=== PATIENT | female | born 1955 | race Caucasian/White ===

== ENCOUNTER → 2020-02-07 | Outpatient (CLI) | payer MEDICARE ==
[~2020-02-07] MED LIST: AMPI500C2 PO; BUPIVACAINE MPF 0.25% 10 ML VIAL. ONE; CELE200C PO; CIPR500T PO; DICL100G28 TP; DULO40CA2 PO; HYDR-2769 PO; IOHEXOL 300 MG/ML 50 ML VIAL. ONE; IRBE300T23 PO; LIDO30CR TP; LIDOCAINE 1% PF 30 ML VIAL. ONE; OXYB5TAB10 PO; PANT40TA6 PO; PREG100C PO; methylPREDNISolone ACETATE 40 MG/ML VIAL. ONE
[2020-02-07 12:05] LABS: AMPHETAMINE/METHAMPHETAMINE NEG (NEG); BARBITURATES NEG (NEG); BENZODIAZEPINES NEG (NEG); CANNABINOIDS NEG (NEG); COCAINE NEG (NEG); METHADONE NEG (NEG); OPIATES POS (NEG); PHENCYCLIDINE NEG (NEG)
[2020-02-07 12:06] VITALS: BP 135/78
== END | disposition home or self-care (01) ==
LOC: SURG 10:51
PROVIDERS: ATTEND Anesthesiology
DX: M54.5 Low back pain (principal); M47.812 Spondylosis without myelopathy or radiculopathy, cervical region; M47.896 Other spondylosis, lumbar region; M53.3 Sacrococcygeal disorders, not elsewhere classified; M46.1 Sacroiliitis, not elsewhere classified; M79.18 Myalgia, other site; Z79.899 Other long term (current) drug therapy; Z88.2 Allergy status to sulfonamides; Z88.1 Allergy status to other antibiotic agents; Z88.8 Allergy status to other drugs, medicaments and biological substances; M19.90 Unspecified osteoarthritis, unspecified site; Z85.3 Personal history of malignant neoplasm of breast; Z90.710 Acquired absence of both cervix and uterus; Z87.440 Personal history of urinary (tract) infections
CPT/HCPCS: 36415; 64451; 80307; J1030; J2001; J3490; Q9967; 64483; 77002

== ENCOUNTER 2020-02-08 11:42 | Emergency (ER) | payer MEDICARE ==
[~2020-02-08] VITALS: Ht 165.1 cm; Wt 72.2 kg
[~2020-02-08 11:42] MED LIST changes: -AMPI500C2 PO; -BUPIVACAINE MPF 0.25% 10 ML VIAL. ONE; -CIPR500T PO; -IOHEXOL 300 MG/ML 50 ML VIAL. ONE; -LIDOCAINE 1% PF 30 ML VIAL. ONE; -methylPREDNISolone ACETATE 40 MG/ML VIAL. ONE
[2020-02-08 11:56] VITALS: BP 132/83
--- NOTE | 2020-02-08 12:17 | PHYS DOC ---
Past History Past Medical History: Arthritis, Cancer Past Surgical History: Cancer Surgery, Hysterectomy, Other Additional Past Surgical Histo: Breast, Alcohol Use: Rarely Adult General Chief Complaint Chief Complaint: PELVIC PAIN HPI HPI Patient is a 64yo female with history of breast cancer and bladder issues who presents for suspect UTI. She has long history of UTIs and was established with a Urologist in [place] but recently moved to [place]. She reports long history of recurrent UTIs and feels she's had one for past 2 weeks citing worsened symptoms for past 72 hours without fever. Describes vague pelvic pain and increased urinary frequency which is typical for her. Review of Systems Review of Systems Fourteen body systems of review of systems have been reviewed. See HPI for pertinent positives and negative responses, other dowell all other systems are negative, non-pertinent or non-contributory Allergies Allergies Allergies Coded Allergies Type Severity Reaction Last Updated Verified Sulfa (Sulfonamide Antibiotics) Allergy Unknown 02/07/20 Yes tetracycline Allergy Unknown 02/07/20 Yes Physical Exam Physical Exam Constitutional: Well developed, well nourished, no acute distress, non-toxic appearance. HENT: Normocephalic, atraumatic, bilateral external ears normal, oropharynx moist, no oral exudates, nose normal. Eyes: PERRLA, EOMI, conjunctiva normal, no discharge. Neck: Normal range of motion, no tenderness, supple, no stridor. Cardiovascular: Heart rate regular, sinus rhythm, no murmurs rubs or gallops Lungs & Thorax: Bilateral breath sounds clear to auscultation Abdomen: Bowel sounds normal, soft, no tenderness, no masses, no pulsatile masses. Nonsurgical abdomen, no peritoneal signs Skin: Warm, dry, no erythema, no rash. Back: No tenderness, no CVA tenderness. Extremities: No tenderness, no cyanosis, no clubbing, ROM intact, no edema. Neurologic: Alert and oriented X 3, grossly normal motor & sensory function, no focal deficits noted. Psychologic: Affect normal, judgement normal, mood normal. Current Patient Data Vital Signs Vital Signs Date Time Temp Pulse Resp B/P (MAP) Pulse Ox O2 Delivery O2 Flow Rate FiO2 02/08/20 11:56 97.8 70 16 132/83 (99) 96 Room Air Lab Results Laboratory Tests Test 02/08/20 12:07 Urine Collection Type Unknown Urine Color Yellow Urine Clarity Clear Urine pH 5.5 Urine Specific [place] 1.025 Urine Protein Neg (NEG-TRACE) Urine Glucose (UA) Neg mg/dL (NEG) Urine Ketones (Stick) Neg mg/dL (NEG) Urine Blood Neg (NEG) Urine Nitrite Neg (NEG) Urine Bilirubin Neg (NEG) Urine Urobilinogen Dipstick 0.2 mg/dL (0.2 mg/dL) Urine Leukocyte Esterase Mod (NEG) Urine RBC Occ /HPF (0-2) Urine WBC 20-40 /HPF (0-4) Urine Squamous Epithelial Cells Mod /LPF Urine Bacteria Mod /HPF (0-FEW) EKG EKG [] Radiology/Procedures Radiology/Procedures [] Heart Score Risk Factors: Risk Factors: DM, Current or recent (<one month) smoker, HTN, HLP, family history of CAD, obesity. Risk Scores: Risk Factors: DM, Current or recent (<one month) smoker, HTN, HLP, family history of CAD, obesity. Course & Med Decision Making Course & Med Decision Making Pertinent Labs and Imaging studies reviewed. (See chart for details) Discussed most likely diagnosis of complicated UTI. Patient treated and RX Cipro given. She has outpatient Urology referral already pending, I feel this is appropriate given her history Strict return precautions given with good understanding by patients. All questions and concerns addressed prior to ED departure in stable condition Dragon Disclaimer Dragon Disclaimer This electronic medical record was generated, in whole or in part, using a voice recognition dictation system. Departure Departure: Impression: Primary Impression: Complicated UTI (urinary tract infection) Disposition: 01 [facility] HOME SELF CARE/HOMELESS Condition: STABLE Referrals: TAWNY SAMUEL DO (PCP) Patient Instructions: Urinary Tract Infection Additional Instructions: As instructed prior to ER departure, please call your primary care physician to schedule outpatient follow-up in upcoming 1 to 14 days after discharge I feel you will benefit from continued outpatient urology follow-up as previously scheduled, please ensure you follow-up with them even after resolution of acute infection As discussed, you were prescribed a medication ciprofloxacin for your infection. This is to treat your complicated UTI. As discussed, please stop your duloxetine medication temporarily while you are on this antibiotic If any concerning signs or symptoms present prior to outpatient follow-up please do not hesitate to come back for repeat evaluation It was pleasure to take care of you and I wish you a speedy recovery! Scripts Ciprofloxacin Hcl (CIPROFLOXACIN HCL) 500 Mg Tablet 1 TAB PO BID for UTI, #13 TAB Prov: MARY GAYLE DO 02/08/20 MARY GAYLE DO Feb 08, 2020 12:17
[2020-02-08 12:31] LABS: BACTERIA,URINE MOD /HPF (0-FEW); BILIRUBIN,URINE NEG (NEG); CLARITY,URINE CLEAR; COLOR,URINE YELLOW; GLUCOSE,URINE NEG (NEG); NITRITE,URINE NEG (NEG); RBC,URINE OCC /HPF (0-2); SQUAMOUS EPITHELIAL CELL,UR MOD /LPF; UROBILINOGEN,URINE 0.2 mg/dL (0.2 mg/dL); WBC,URINE 20-40 /HPF (0-4)
[2020-02-08] MEDS ORDERED: CIPR500T PO (13:03)
[2020-02-08] MEDS ORDERED: CIPROFLOXACIN HCL 500 MG TABLET PO ONE (13:15)
== END 2020-02-08 13:16 | disposition home or self-care (01) ==
LOC: ER 11:42
DX: N39.0 Urinary tract infection, site not specified (principal); R10.2 Pelvic and perineal pain; M19.90 Unspecified osteoarthritis, unspecified site; Z90.710 Acquired absence of both cervix and uterus; Z85.3 Personal history of malignant neoplasm of breast; Z88.2 Allergy status to sulfonamides; Z88.1 Allergy status to other antibiotic agents
CPT/HCPCS: 81001; 87086; 99283

== ENCOUNTER → 2020-03-04 | Outpatient (CLI) | payer MEDICARE ==
[2020-02-08 11:56] VITALS: BP 132/83
[~2020-03-04] MED LIST changes: +CIPR500T PO
--- NOTE | 2020-03-04 10:30 | RAD ---
INDICATION: Reason: CHRONIC CYSTITIS / Spl. Instructions: / History: COMPARISON: None. TECHNIQUE: Grayscale and color ultrasound images obtained of the bilateral kidneys and bladder. FINDINGS: Right Kidney: 97 mm. No hydronephrosis. Left Kidney: 109 mm. No hydronephrosis. Bladder: Minimal urine within Partially visualized liver is echogenic. Can be seen with fatty infiltration. IMPRESSION: * No hydronephrosis bilaterally. Electronically signed by: Luis Enrique Dubon MD (03/04/2020 10:27 AM) [id number]
== END ==
LOC: US 09:36
PROVIDERS: ATTEND Urology
DX: N30.20 Other chronic cystitis without hematuria (principal); N28.89 Other specified disorders of kidney and ureter
CPT/HCPCS: 76770

== ENCOUNTER → 2020-03-06 | Outpatient (CLI) | payer MEDICARE ==
[~2020-03-06] MED LIST changes: +AMPI500C2 PO; +BUPIVACAINE MPF 0.25% 30 ML VIAL. ONE
[2020-03-06 13:14] VITALS: BP 136/68
== END | disposition home or self-care (01) ==
LOC: SURG 12:16
PROVIDERS: ATTEND Anesthesiology
DX: M79.18 Myalgia, other site (principal); M53.3 Sacrococcygeal disorders, not elsewhere classified; M46.1 Sacroiliitis, not elsewhere classified; M47.812 Spondylosis without myelopathy or radiculopathy, cervical region; N30.20 Other chronic cystitis without hematuria; M19.90 Unspecified osteoarthritis, unspecified site; Z85.3 Personal history of malignant neoplasm of breast; Z87.440 Personal history of urinary (tract) infections; Z90.710 Acquired absence of both cervix and uterus; Z80.8 Family history of malignant neoplasm of other organs or systems; Z88.2 Allergy status to sulfonamides; Z79.899 Other long term (current) drug therapy; Z88.8 Allergy status to other drugs, medicaments and biological substances; Z88.1 Allergy status to other antibiotic agents; Z82.49 Family history of ischemic heart disease and other diseases of the circulatory system
CPT/HCPCS: 20553; J3490

== ENCOUNTER → 2020-03-12 | Outpatient (CLI) | payer MEDICARE ==
[2020-03-06 13:14] VITALS: BP 136/68
[~2020-03-12] MED LIST changes: -BUPIVACAINE MPF 0.25% 30 ML VIAL. ONE
--- NOTE | 2020-03-20 12:36 | RAD ---
DATE: 03/12/2020 11:21 AM EXAM: MAMMO [facility] SCREENING BILATERAL HISTORY: Screening COMPARISON: 03/16/2019, 03/03/2018 Bilateral CC and MLO views of the breasts were performed. Bilateral breast tomosynthesis was performed in CC and MLO projections. This study was interpreted with the benefit of Computerized Aided Detection (CAD). FINDINGS: Breast Density: SCATTERED The breast parenchyma shows scattered fibroglandular densities. Breast parenchyma level B Stable benign postsurgical change in the left breast. No suspicious masses, microcalcifications or architectural distortion is present to suggest malignancy in either breast. The visualized axillae are unremarkable. IMPRESSION: No mammographic evidence of malignancy. BI-RADS CATEGORY: 2 BENIGN FINDING(S) RECOMMENDED FOLLOW-UP: 12M 12 MONTH FOLLOW-UP Annual screening mammography is recommended, unless clinically indicated sooner based on symptoms or change in physical exam. PQRS compliance statement: Patient information was entered into a reminder system with a target due date for the next mammogram. Mammography is a sensitive method for finding small breast cancers, but it does not detect them all and is not a substitute for careful clinical examination. A negative mammogram does not negate a clinically suspicious finding and should not result in delay in biopsying a clinically suspicious abnormality. "Our facility is accredited by the [employer] Mammography Program."
== END ==
LOC: MAMMO 11:04
PROVIDERS: ATTEND Family Medicine
DX: Z12.31 Encounter for screening mammogram for malignant neoplasm of breast (principal); N64.89 Other specified disorders of breast
CPT/HCPCS: 77063; 77067

== ENCOUNTER → 2020-04-03 | Outpatient (CLI) | payer MEDICARE ==
[~2020-04-03] MED LIST changes: +BUPIVACAINE MPF 0.25% 10 ML VIAL. ONE; +IOHEXOL 300 MG/ML 50 ML VIAL. ONE; +LIDOCAINE 1% PF 30 ML VIAL. ONE; +methylPREDNISolone ACETATE 40 MG/ML VIAL. ONE
[2020-04-03 13:11] VITALS: BP 149/95
== END | disposition home or self-care (01) ==
LOC: SURG 12:24
PROVIDERS: ATTEND Anesthesiology
DX: M46.1 Sacroiliitis, not elsewhere classified (principal); M54.5 Low back pain; G89.29 Other chronic pain; M19.90 Unspecified osteoarthritis, unspecified site; Z88.2 Allergy status to sulfonamides; Z88.8 Allergy status to other drugs, medicaments and biological substances; Z79.899 Other long term (current) drug therapy; Z88.1 Allergy status to other antibiotic agents; Z80.8 Family history of malignant neoplasm of other organs or systems; Z87.440 Personal history of urinary (tract) infections; Z85.3 Personal history of malignant neoplasm of breast; Z90.710 Acquired absence of both cervix and uterus; Z82.49 Family history of ischemic heart disease and other diseases of the circulatory system
CPT/HCPCS: 27096; J1030; J3490; Q9967

== ENCOUNTER → 2020-05-01 | Outpatient (CLI) | payer MEDICARE ==
[~2020-05-01] MED LIST changes: -CIPR500T PO; +CIPR500T2 PO; +NITR100C62 PO
[2020-05-01 16:05] VITALS: BP 167/76
== END | disposition home or self-care (01) ==
LOC: SURG 14:02
PROVIDERS: ATTEND Anesthesiology
DX: M46.1 Sacroiliitis, not elsewhere classified (principal); M47.816 Spondylosis without myelopathy or radiculopathy, lumbar region; M54.5 Low back pain; I10 Essential (primary) hypertension; Z88.1 Allergy status to other antibiotic agents; Z88.8 Allergy status to other drugs, medicaments and biological substances; Z82.49 Family history of ischemic heart disease and other diseases of the circulatory system; Z98.890 Other specified postprocedural states
CPT/HCPCS: G0260; J1030; J3490; Q9967; 27096

== ENCOUNTER → 2020-05-29 | Day surgery (SDC) | payer MEDICARE ==
[~2020-05-29] MED LIST changes: +BUPIVACAINE MPF 0.25% 10 ML VIAL. IJ ONE; +DEXAMETHASONE SOD PHOS 4 MG/ML VIAL. INT ART ONE; +DEXAMETHASONE SOD PHOS 4 MG/ML VIAL. ONE; -IOHEXOL 300 MG/ML 50 ML VIAL. ONE; +LIDOCAINE 1% PF 30 ML VIAL. INJ ONE; +MIDAZOLAM HCL PF 2 MG/2 ML VIAL. IVP ONE; +MIDAZOLAM HCL PF 2 MG/2 ML VIAL. ONE; -methylPREDNISolone ACETATE 40 MG/ML VIAL. ONE
[2020-05-29 10:22] VITALS: BP 119/72
== END | disposition home or self-care (01) ==
LOC: SURG 08:11
PROVIDERS: ATTEND Anesthesiology
DX: M46.1 Sacroiliitis, not elsewhere classified (principal); M47.816 Spondylosis without myelopathy or radiculopathy, lumbar region; F11.90 Opioid use, unspecified, uncomplicated
CPT/HCPCS: 64635; 64640; 99152; 99153; J1100; J2250; J3010; J3490

== ENCOUNTER → 2020-07-03 | Day surgery (SDC) | payer MEDICARE ==
[~2020-07-03] MED LIST changes: +0.9 % SODIUM CHLORIDE 50 ML VIAL. IJ ONE; -BUPIVACAINE MPF 0.25% 10 ML VIAL. IJ ONE; -BUPIVACAINE MPF 0.25% 10 ML VIAL. ONE; +BUPIVACAINE MPF 0.25% 30 ML VIAL. ONE; +DEXAMETHASONE SOD PHOS 10 MG/ML VIAL. ONE; -DEXAMETHASONE SOD PHOS 4 MG/ML VIAL. INT ART ONE; -DEXAMETHASONE SOD PHOS 4 MG/ML VIAL. ONE; +IOHEXOL 300 MG/ML 50 ML VIAL. ONE; -LIDO30CR TP; +LIDO30CR2 TP; -LIDOCAINE 1% PF 30 ML VIAL. INJ ONE; -MIDAZOLAM HCL PF 2 MG/2 ML VIAL. IVP ONE; -MIDAZOLAM HCL PF 2 MG/2 ML VIAL. ONE
[2020-07-03 09:17] VITALS: BP 165/72
== END | disposition home or self-care (01) ==
LOC: SURG 08:16
PROVIDERS: ATTEND Anesthesiology
DX: M54.16 Radiculopathy, lumbar region (principal); M51.36 Other intervertebral disc degeneration, lumbar region; M47.812 Spondylosis without myelopathy or radiculopathy, cervical region; M53.3 Sacrococcygeal disorders, not elsewhere classified; M46.1 Sacroiliitis, not elsewhere classified; M79.18 Myalgia, other site; I10 Essential (primary) hypertension; M19.90 Unspecified osteoarthritis, unspecified site; Z88.2 Allergy status to sulfonamides; Z88.8 Allergy status to other drugs, medicaments and biological substances; Z79.899 Other long term (current) drug therapy; Z88.1 Allergy status to other antibiotic agents; Z90.710 Acquired absence of both cervix and uterus; Z98.890 Other specified postprocedural states; Z85.3 Personal history of malignant neoplasm of breast; Z87.440 Personal history of urinary (tract) infections; Z80.8 Family history of malignant neoplasm of other organs or systems; Z82.49 Family history of ischemic heart disease and other diseases of the circulatory system
CPT/HCPCS: 62323; J1100; J3490; Q9967; 72275

== ENCOUNTER → 2020-07-31 | Day surgery (SDC) | payer MEDICARE ==
[~2020-07-31] MED LIST changes: -0.9 % SODIUM CHLORIDE 50 ML VIAL. IJ ONE; -BUPIVACAINE MPF 0.25% 30 ML VIAL. ONE; -DEXAMETHASONE SOD PHOS 10 MG/ML VIAL. ONE; -IOHEXOL 300 MG/ML 50 ML VIAL. ONE; -LIDOCAINE 1% PF 30 ML VIAL. ONE
[2020-07-31 10:21] VITALS: BP 130/74
== END | disposition home or self-care (01) ==
LOC: SURG 09:28
PROVIDERS: ATTEND Anesthesiology
DX: M54.16 Radiculopathy, lumbar region (principal); M48.061 Spinal stenosis, lumbar region without neurogenic claudication; M51.36 Other intervertebral disc degeneration, lumbar region; I10 Essential (primary) hypertension; M19.90 Unspecified osteoarthritis, unspecified site; Z88.2 Allergy status to sulfonamides; Z88.8 Allergy status to other drugs, medicaments and biological substances; Z79.899 Other long term (current) drug therapy; Z90.710 Acquired absence of both cervix and uterus; Z85.3 Personal history of malignant neoplasm of breast; Z87.440 Personal history of urinary (tract) infections; Z88.1 Allergy status to other antibiotic agents; Z80.8 Family history of malignant neoplasm of other organs or systems; Z82.49 Family history of ischemic heart disease and other diseases of the circulatory system
CPT/HCPCS: 64483

== ENCOUNTER → 2020-09-11 | Day surgery (SDC) | payer MEDICARE ==
[~2020-09-11] MED LIST changes: +0.9 % SODIUM CHLORIDE 10 ML VIAL. ONE; +BUPIVACAINE MPF 0.25% 10 ML VIAL. ONE; +DEXAMETHASONE SOD PHOS 10 MG/ML VIAL. ONE; +IOHEXOL 300 MG/ML 50 ML VIAL. ONE; +LIDOCAINE 1% PF 30 ML VIAL. ONE
[2020-09-11 10:30] VITALS: BP 132/63
== END | disposition home or self-care (01) ==
LOC: SURG 10:20
PROVIDERS: ATTEND Anesthesiology
DX: M54.16 Radiculopathy, lumbar region (principal); M43.06 Spondylolysis, lumbar region; M51.36 Other intervertebral disc degeneration, lumbar region; I10 Essential (primary) hypertension; M19.90 Unspecified osteoarthritis, unspecified site; Z88.2 Allergy status to sulfonamides; Z79.899 Other long term (current) drug therapy; Z88.8 Allergy status to other drugs, medicaments and biological substances; Z87.440 Personal history of urinary (tract) infections; Z85.3 Personal history of malignant neoplasm of breast; Z90.710 Acquired absence of both cervix and uterus; Z98.890 Other specified postprocedural states
CPT/HCPCS: 64483; J1100; J3490; Q9967

== ENCOUNTER → 2020-09-11 | Outpatient (CLI) | payer MEDICARE ==
[~2020-09-11] MED LIST changes: -0.9 % SODIUM CHLORIDE 10 ML VIAL. ONE; -BUPIVACAINE MPF 0.25% 10 ML VIAL. ONE; -DEXAMETHASONE SOD PHOS 10 MG/ML VIAL. ONE; -IOHEXOL 300 MG/ML 50 ML VIAL. ONE; -LIDOCAINE 1% PF 30 ML VIAL. ONE
[2020-09-11 10:30] VITALS: BP 132/63
--- NOTE | 2020-09-11 17:16 | RAD ---
XR L-SPINE BENDING ONLY 2-3 VIEWS History: Reason: BACK PAIN, FLEXION AND EXTENSION / Spl. Instructions: / History: Technique: 3 views lumbar spine. Comparison: None. Findings: Normal vertebral body alignment, unchanged in flexion and extension. Normal vertebral body height. No fracture. Multilevel degenerative disc changes most prominent moderate L3-L4 and L5-S1. Moderate to advanced lower lumbar facet arthropathy. Vascular calcifications. Impression: 1. Moderate multilevel lumbar spondylosis. Electronically signed by: Juan Zuniga DO (09/11/2020 5:14 PM) [id number]
== END ==
LOC: RAD 11:19
PROVIDERS: ATTEND Anesthesiology
DX: M47.817 Spondylosis without myelopathy or radiculopathy, lumbosacral region (principal)
CPT/HCPCS: 72100

== ENCOUNTER → 2020-10-22 | Outpatient (CLI) | payer MEDICARE ==
[2020-09-11 10:30] VITALS: BP 132/63
[2020-10-22 12:10] LABS: BASO % 1 % (0-3); EOS # 0.1 x10^3/uL (0.0-0.7); EOS % 1 % (0-3); HEMATOCRIT 40.1 % (36.0-47.0); HEMOGLOBIN 13.3 g/dL (12.0-15.5); LYMPH # 1.7 x10^3/uL (1.0-4.8); LYMPH % 31 % (24-48); MEAN CORPUSCULAR HEMOGLOBIN 30 pg (25-35); MEAN CORPUSCULAR HGB CONC 33 g/dL (31-37); MEAN CORPUSCULAR VOLUME 91 fL (79-100); MONO # 0.5 x10^3/uL (0.0-1.1); MONO % 9 % (0-9); NEUT # 3.4 x10^3uL (1.8-7.7); NEUT % 59 % (31-73); PLATELET COUNT 237 x10^3/uL (140-400); RED BLOOD COUNT 4.43 x10^6/uL (3.50-5.40); RED CELL DISTRIBUTION WIDTH 13.4 % (11.5-14.5); WHITE BLOOD COUNT 5.7 x10^3/uL (4.0-11.0)
[2020-10-22 12:21] LABS: CALCIUM 8.7 mg/dL (8.5-10.1); CREATININE 0.9 mg/dL (0.6-1.0); GFR 62.6
[2020-10-22 12:26] LABS: BILIRUBIN,URINE NEG (NEG); CLARITY,URINE CLEAR; COLOR,URINE YELLOW; GLUCOSE,URINE NEG (NEG); NITRITE,URINE NEG (NEG); UROBILINOGEN,URINE 0.2 mg/dL (0.2 mg/dL)
[2020-10-22 12:27] LABS: BACTERIA,URINE FEW /HPF (0-FEW); RBC,URINE RARE /HPF (0-2); WBC,URINE RARE /HPF (0-4)
== END ==
LOC: LAB 11:29
PROVIDERS: ATTEND Anesthesiology Pain Medicine
DX: Z01.818 Encounter for other preprocedural examination (principal); M46.00 Spinal enthesopathy, site unspecified; M47.816 Spondylosis without myelopathy or radiculopathy, lumbar region; M51.36 Other intervertebral disc degeneration, lumbar region
CPT/HCPCS: 80048; 81001; 85025; 87641